=== PATIENT | female | born 1995 | race Caucasian/White ===

== ENCOUNTER 2021-04-13 16:34 | Inpatient (IN) | payer MEDICAID ==
[~2021-04-13] VITALS: Ht 165.1 cm; Wt 45.4 kg
[2021-04-13] MEDS ORDERED: LORA2TAB PO (17:22)
[2021-04-13] MEDS ORDERED: OXYC10TA49 PO (17:22)
[2021-04-13] MEDS ORDERED: HYDR10CA4 PO (17:22)
[2021-04-13] MEDS ORDERED: [UNRECOGNIZED DRUG - REMARK] PO (17:24)
[2021-04-13] MEDS ORDERED: IV NORMAL SALINE 1000 ML BAG IV ONE (17:30)
[2021-04-13] MEDS ORDERED: MORPHINE SULFATE 2 MG/1 ML DISP.SYRIN IV ONE (17:30)
[2021-04-13] MEDS ORDERED: ONDANSETRON 4 MG/2 ML VIAL IV ONE (17:30)
[2021-04-13] MEDS ORDERED: MORPHINE SULFATE 4 MG/1 ML DISP.SYRIN ONE (18:08)
[2021-04-13] MEDS ORDERED: ONDANSETRON 4 MG/2 ML VIAL ONE (18:09)
--- NOTE | 2021-04-13 18:09 | NUR ---
C/O pain to (R) ribs and swelling to (R) side of neck. EKG done, saline lock placed, labs drawn, swab specimen collected, IV hydration began and IV medications administered. XR tech at bedside. Pt currently in no acute distress but continues to C/O pain to (R) ribs.
[2021-04-13 18:10] LABS: HEMATOCRIT 34.6 % (31.2-41.9); MEAN CORPUSCULAR HEMOGLOBIN 28.1 uug (24.7-32.8); MEAN CORPUSCULAR VOLUME 84.9 fL (75.5-95.3); PLATELET COUNT (AUTO) 266 K/uL (179-408)
[2021-04-13 18:24] LABS: CARBON DIOXIDE 27 mmol/L (21-32); CHLORIDE 104 mmol/L (98-107); CREATININE 0.6 mg/dL (0.6-1.3); GLUCOSE 90 mg/dL (74-106); UREA NITROGEN, BLOOD 5 mg/dL (7-18)
[2021-04-13 18:30] LABS: ALANINE AMINOTRANSFERASE 16 U/L (14-59); ALKALINE PHOSPHATASE 64 U/L (50-136); ASPARTATE AMINOTRANSFERASE 19 U/L (15-37); BILIRUBIN,DIRECT 0.1 mg/dL (0.0-0.2); BILIRUBIN,TOTAL 0.4 mg/dL (0.2-1.0); LIPASE 112 U/L (73-393); TOTAL PROTEIN, SERUM 7.2 g/dL (6.4-8.2)
--- NOTE | 2021-04-13 18:45 | NUR ---
Pt states slight improvement in pain, can now rank pain on scale, but continues to states 10/10 pain. Pt in no acute distress but visibly guarding and grimacing.
[2021-04-13 18:58] LABS: *BILIRUBIN,URIN NEGATIVE (NEGATIVE); *BLOOD, URINE 2+ (NEGATIVE); *CLARITY,URINE CLEAR (CLEAR); *COLOR,URINE YELLOW (YELLOW); *KETONES,URINE NEGATIVE (NEGATIVE); *UROBILINOGEN,URINE 0.2 E.U./dl (NORMAL); LEUKOCYTE ESTERASE ,URINE NEGATIVE (NEGATIVE); NITRITE, URINE NEGATIVE (NEGATIVE); UGLUCOSE NEGATIVE (NEGATIVE)
[2021-04-13] MEDS ORDERED: HYDROMORPHONE 1 MG/1 ML DISP.SYRIN IV ONE ×5 (19:00→23:30)
[2021-04-13] MEDS ORDERED: HYDROMORPHONE 1 MG/1 ML DISP.SYRIN ONE ×4 (19:01→23:32)
[2021-04-13] MEDS ORDERED: IV NORMAL SALINE 250 ML IV ONE (19:13)
[2021-04-13] MEDS ORDERED: IOHEXOL 300MG/ML 100 ML INFUS..BTL ONE (19:13)
[2021-04-13] MEDS ORDERED: SWABABLE VALVE TRANSFER SET EA MC ONE (19:13)
--- NOTE | 2021-04-13 19:15 | NUR ---
pt a/o c/o pain has received pain meds by previous nurse.
--- NOTE | 2021-04-13 19:22 | NUR ---
pt taken to cat scan
--- NOTE | 2021-04-13 19:49 | NUR ---
pt returned from cat scan.
[2021-04-13] MEDS ORDERED: AZITHROMYCIN IV 1,000 MG in IV DEXTROSE 5% 250 ML IV ONE (21:00)
[2021-04-13] MEDS ORDERED: AZITHROMYCIN 500 MG VIAL IV ONE (21:12)
--- NOTE | 2021-04-13 21:46 | NUR ---
call to [facility] panel doctor for admission.
--- NOTE | 2021-04-13 22:09 | NUR ---
Dr. Robertson called Dr. Cho back to discuss admission of pt.
--- NOTE | 2021-04-13 22:11 | NUR ---
pt to be admitted to m/s status.
[2021-04-13] MEDS ORDERED: ACETAMINOPHEN 325 MG TABLET PO PRN (22:15)
[2021-04-13] MEDS ORDERED: ONDANSETRON 4 MG/2 ML VIAL IV PRN (22:15)
[2021-04-13] MEDS ORDERED: Z GUARD REMEDY PASTE 57 GM TUBE TOP PRN (22:15)
[2021-04-13] MEDS ORDERED: KETOROLAC TROMETHAMINE 15 MG INJ IVP PRN (22:15)
[2021-04-13] MEDS ORDERED: AZITHROMYCIN IV 500 MG in IV DEXTROSE 5% 250 ML IV SCH (22:15)
[2021-04-13] MEDS ORDERED: HYDROCODONE/APAP 5-325MG TABLET PO PRN (22:15)
[2021-04-13] MEDS ORDERED: MAGNESIUM HYDROXIDE 30 ML LIQUID UDC PO PRN (22:15)
--- NOTE | 2021-04-14 00:50 | NUR ---
pt will be admitted to room 329
--- NOTE | 2021-04-14 00:53 | NUR ---
report given to Lilibeth KIRK.
--- NOTE | 2021-04-14 01:19 | NUR ---
pt was transported to room 329 with all belongings. Lilibeth in room to accept pt.
--- NOTE | 2021-04-14 01:30 | NUR ---
RECEIVED PATIENT VIA GURNEY FROM ER. PATIENT IS A/O X3 BUT VERY DROWSY. UPON ADMISSION PATIENT STATING THAT, "THE ER DOCTOR PROMISED I WOULD HAVE PAIN MEDICATION WAITING FOR ME UP ON THE FLOOR." PATIENT INFORMED THAT [facility]CO WAS ORDERED PER ADMITTING MD. PATIENT APPEARS VERY DROWSY AND FALLING OVER IN BED, BUT ONCE STAFF ENTERS ROOM, PATIENT BECOMES VERY AWAKE AND START SAYING SHE HAS SEVERE PAIN AND ANXIETY, BUT IS NOTED SLURRING WORDS. RN NURSING BAIL BONDING AGENT WENT INTO WORK TO SPEAK WITH PATIENT IN REGARDS TO DOCTORS ORDERS. ALL NEEDS ATTENDED, WILL CONTINUE TO MONITOR AND ASSESS.
[2021-04-14 01:58] VITALS: BP 113/78
--- NOTE | 2021-04-14 02:00 | NUR ---
PATIENTS HEART RATE 49. PATIENT ON RA SATING 99%. NO RESP. DISTRESS NOTED. NO S/S OF ANY SOB. CALLED OUT TO DR. BALES FOR FURTHER ORDERS.
--- NOTE | 2021-04-14 02:35 | NUR ---
SPOKE WITH DR. BALES, RECEIVED NEW ORDERS. WENT INTO ROOM TO SPEAK WITH PATIENT AND PATIENT IS ASLEEP IN BED. NO RESP. DISTRESS NOTED. WILL CONTINUE TO MONITOR AND ASSESS.
[2021-04-14] MEDS ORDERED: HYDROXYZINE HCL 25 MG/ML VIAL IM PRN (02:45)
[2021-04-14] MEDS ORDERED: QUETIAPINE FUMARATE 25 MG TABLET PO PRN (02:45)
[2021-04-14] MEDS ORDERED: CEFTRIAXONE 1 G VIAL ONE (02:50)
[2021-04-14] MEDS: CEFTRIAXONE 1 G in IV DEXTROSE 5% 50 ML IV SCH ×2 (02:52→22:09)
[2021-04-14] MEDS: OXYCODONE HCL 5 MG TABLET PO PRN ×3 (03:25→13:22)
[2021-04-14 04:10] VITALS: BP 106/58
[2021-04-14] MEDS: LORAZEPAM 1 MG TABLET PO PRN ×3 (04:16→22:09)
[2021-04-14 05:36] LABS: BACTERIA,URINE NONE SEEN /HPF (NONE SEEN); SQUAMOUS EPITHELIAL CELL,UR FEW /HPF (NONE SEEN); WBC,URINE 0-3 /HPF (0-3)
[2021-04-14 06:38] LABS: HEMATOCRIT 30.7 % (31.2-41.9); MEAN CORPUSCULAR HEMOGLOBIN 28.9 uug (24.7-32.8); MEAN CORPUSCULAR VOLUME 84.9 fL (75.5-95.3); PLATELET COUNT (AUTO) 241 K/uL (179-408)
[2021-04-14 06:48] LABS: BILIRUBIN,TOTAL 0.1 mg/dL (0.2-1.0); CREATININE 0.7 mg/dL (0.6-1.3); MAGNESIUM 2.1 mg/dL (1.8-2.4); PHOSPHOROUS 4.5 mg/dL (2.5-4.9); POTASSIUM 3.5 mmol/L (3.5-5.1); TOTAL PROTEIN, SERUM 6.2 g/dL (6.4-8.2)
[2021-04-14 07:13] LABS: THYROID STIMULATING HORMONE 1.221 mIU/mL (0.358-3.740)
--- NOTE | 2021-04-14 09:35 | NUR ---
received asleep easily arousable. denies sob/difficulty breathing. iv hydration ongoing. seen and examined by dr. burrows no new orders received. safety measures in place. kept comfortable. needs attended. will cont to monitor.
[2021-04-14] MEDS ORDERED: ALBUTEROL SULFATE 2.5 MG/3 ML NEBU NEB PRN (10:15)
[2021-04-14 11:45] VITALS: BP 99/48
[2021-04-14] MEDS: LIDOCAINE 5% PATCH TD SCH (12:09)
--- NOTE | 2021-04-14 12:14 | NUR ---
pt refused lidocaine patch wants to talk to doctor again about getting iv dilaudid. spoke to dr. burrows he said he already called pain specialist for consult and to continue with current pain medication. pt made aware.
[2021-04-14] MEDS ORDERED: TRAMADOL HCL 50 MG TABLET PO PRN (14:00)
--- NOTE | 2021-04-14 14:58 | NUR ---
per patient she spoke to lung doctor. called dr. salgado and confirmed he spoke with patient. per dr. salgado, pt has a tiny bit of atelectasis but does not recommend a stronger medication and that it would do more harm than good and no new orders were received. conversation was relayed to the patient and dr burrows no new orders received from him either but to give dr. salgado's office number to the mother.
[2021-04-14 15:20] VITALS: BP 98/50
--- NOTE | 2021-04-14 16:58 | NUR ---
pt said she's allergic to tramadol and asked dr. burrows to change it. spoke to dr. burrows and he will put in orders. pt's mother is here and updated on condition. provided dr. salgado's number also.
[2021-04-14] MEDS: OXYCODONE/APAP 5-325 MG TABLET PO PRN (18:36)
--- NOTE | 2021-04-14 18:51 | NUR ---
pt in bed using her phone, mother at bedside. no sob noted. iv intact. safety measures in place. kept comfortable. needs attended. endorsed.
[2021-04-14 20:12] VITALS: BP 105/60
[2021-04-14] MEDS ORDERED: AZITHROMYCIN IV 500 MG in IV DEXTROSE 5% 250 ML IV SCH (21:00)
--- NOTE | 2021-04-14 21:30 | NUR ---
Received pt resting in bed. AAO x4. Mother at bedside. No acute distress noted. Right forearm IV , patent and intact. Pt on IV ATB. Safety measures maintained. Call light and personal items within reach. Will continue to monitor.
[2021-04-15] MEDS: OXYCODONE/APAP 5-325 MG TABLET PO PRN ×3 (04:01→13:57)
[2021-04-15 04:15] VITALS: BP 98/45
[2021-04-15] MEDS: LORAZEPAM 1 MG TABLET PO PRN ×2 (06:13→14:09)
--- NOTE | 2021-04-15 07:30 | NUR ---
received patient laying in bed sleeping and in no apparent distress. patient is alert and oriented and able to make needs known. patient currently with rr even and non-labored, no cough present at the moment. patient with spo2 96%.
[2021-04-15] MEDS: LIDOCAINE 5% PATCH TD SCH (10:00)
[2021-04-15 11:43] VITALS: BP 92/46
[2021-04-15 14:30] VITALS: BP 108/55
--- NOTE | 2021-04-15 14:46 | NUR ---
patient stating wishing to leave against medical advice, informed risk and benefits, stated wanting to leave, against medical advice form signed. patient left accompanied with mother. patients iv site removed, dressing applied. patient with stable gait, v/s wnl.
--- NOTE | 2021-04-15 14:50 | NUR ---
incident report regarding against medical advice leave completed. reference #[id number]
== END 2021-04-15 14:45 | disposition left against medical advice (07) | DRG 139 ==
LOC: ER 16:38 → MEDSURG3 04-14 00:59
PROVIDERS: ADMIT Internal Medicine; ATTEND Internal Medicine
DX: J15.9 Unspecified bacterial pneumonia (principal); D64.9 Anemia, unspecified; F41.9 Anxiety disorder, unspecified; M41.9 Scoliosis, unspecified; R09.1 Pleurisy; Z87.01 Personal history of pneumonia (recurrent); J98.11 Atelectasis; F17.210 Nicotine dependence, cigarettes, uncomplicated; E04.2 Nontoxic multinodular goiter; Z20.822 Contact with and (suspected) exposure to COVID-19
CPT/HCPCS: 36415; 70030-TC; 70491; 71045; 71260; 83605; 83690; 83735; 84100; 84443; 85025; 86140; 86403; 87040; 87070; 87400; 93005; A4663; G0378; J0456; J0696; J1170; J2270; J2405; J7030; J7050; J7060; Q9967